=== PATIENT | female | born 1995 | race Caucasian/White ===

== ENCOUNTER 2017-10-25 13:35 | Emergency (ER) | payer BC ==
[~2017-10-25] VITALS: Ht 175.3 cm; Wt 81.6 kg
[2017-10-25 13:40] VITALS: BP_SYST 140
[2017-10-25 14:19] LABS: BASOPHILS # (AUTO) 0.1 K/uL (0.0-0.2); BASOPHILS % (AUTO) 0.6 % (0.0-2.0); EOSINOPHILS # (AUTO) 0.2 K/uL (0.0-0.4); EOSINOPHILS % (AUTO) 1.8 % (0.0-4.0); HEMATOCRIT 44.1 % (36-48); LYMPHOCYTES # (AUTO) 1.4 K/uL (1.0-5.5); LYMPHOCYTES % (AUTO) 14.6 % (20.5-51.5); MEAN CORPUSCULAR HEMOGLOBIN 29 pg (27-31); MEAN CORPUSCULAR HGB CONC 34 % (32-36); MEAN CORPUSCULAR VOLUME 84 fL (79.0-98.0); MONOCYTES # (AUTO) 0.5 K/uL (0.0-1.0); NEUTROPHILS # (AUTO) 7.2 K/uL (1.8-7.7); PLATELET COUNT (AUTO) 351 K/uL (130-430); RED BLOOD CELL COUNT(AUTO) 5.24 MIL/uL (4.2-6.2); RED CELL DISTRIBUTION WIDTH 12.1 % (9.0-15.0); WHITE BLOOD COUNT (AUTO) 9.4 K/uL (4.8-10.8)
[2017-10-25 14:27] LABS: CALCIUM 8.8 mg/dL (8.4-11.0); CREATININE 0.69 mg/dL (0.55-1.30); POTASSIUM 4.6 mmol/L (3.5-5.1)
[2017-10-25 14:28] LABS: PROTHROMBIN TIME 9.7 SECS (9.5-12.5)
[2017-10-25 14:29] LABS: ALBUMIN 3.8 g/dL (3.4-4.8); TOTAL BILIRUBIN 1.1 mg/dL (0.0-1.0)
[2017-10-25] MEDS: MORPHINE 4 MG/ML INJ. SYRINGE IM ONE ×2 (14:35→16:34)
[2017-10-25] MEDS: KETOROLAC TROMETHAMINE 60 MG/2 ML VIAL IM ONE (14:35)
[2017-10-25] MEDS: ONDANSETRON 4 MG ODT TAB PO ONE (16:33)
[2017-10-25 17:52] VITALS: BP_SYST 140
[2017-10-25] MEDS ORDERED: MORPHINE 4 MG/ML INJ. SYRINGE IM ONE (18:00)
== END 2017-10-25 17:52 | disposition home or self-care (01) ==
LOC: SED 13:35
DX: M54.30 Sciatica, unspecified side (principal)
CPT/HCPCS: 36415; 72131; 74176; 80053; 83690; 84703; 85025; 85610; 85730; 96372; 99285; J1885; J2270; Q0162